=== PATIENT | female | born 1980 | race Caucasian/White ===

== ENCOUNTER 2021-07-12 21:40 | Emergency (ER) | payer SELFPAY ==
[2021-07-12 23:19] LABS: HEMOGLOBIN 14.5 gm/dl (12.3-15.3); RED BLOOD COUNT 4.62 M/UL (4.00-5.10); WHITE BLOOD COUNT 13.4 K/UL (4.5-11.0)
[2021-07-12 23:35] LABS: BUN/CREATININE RATIO 9 (0-10)
[2021-07-13] MEDS ORDERED: LODINE CAP 300300 MG PO (01:54)
[2021-07-13] MEDS ORDERED: BACTRIM DS TAB1 EACH PO (01:54)
[2021-07-13] MEDS ORDERED: CEPHALEXIN500 MG PO (01:54)
== END 2021-07-13 02:30 | disposition home or self-care (01) ==
LOC: ER1 21:40
PROVIDERS: Physician Assistant
DX: L02.412 Cutaneous abscess of left axilla (principal); L03.114 Cellulitis of left upper limb; Z20.822 Contact with and (suspected) exposure to COVID-19
CPT/HCPCS: 10060; 73201; 80053; 84703; 85025; 85610; 85652; 85730; 86140; 87040; 87070; 87205; 93005; 96374; 99283; J0690; Q9967; U0002